=== PATIENT | male | born 1980 | race Caucasian/White ===

== ENCOUNTER 2024-08-06 00:07 | Emergency (ER) | payer BC ==
[2024-08-06] MEDS ORDERED: HYDROcodone/Acetaminophen 5/325 mg Tablet ONE (00:32)
[2024-08-06] MEDS ORDERED: Acetaminophen 500 MG TAB ONE (00:33)
[2024-08-06] MEDS ORDERED: Ketorolac Tromethamine 30 MG (1 mL) VIAL ONE (00:33)
[2024-08-06] MEDS ORDERED: Lidocaine 4% Patch ONE (00:33)
[2024-08-06 01:05] LABS: Troponin I Less than 0.010 ng/mL (< 0.028)
== END 2024-08-06 01:58 | disposition home or self-care (01) ==
LOC: CSHERS 00:07
DX: M54.6 Pain in thoracic spine (principal); I10 Essential (primary) hypertension; K21.9 Gastro-esophageal reflux disease without esophagitis; Z75.3 Unavailability and inaccessibility of health-care facilities; Z55.6 Problems related to health literacy; Z79.899 Other long term (current) drug therapy
CPT/HCPCS: 36415; 71046; 84484; 93005; 96372; J1885